=== PATIENT | female | born 2000 | race Two or more races ===

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

== ENCOUNTER 2020-01-10 01:50 | Emergency (ER) | payer MEDICAID ==
[~2020-01-10] VITALS: Ht 160 cm; Wt 130.0 kg
--- NOTE | 2020-01-10 02:12 | NUR ---
RN FIRST CONTACT WITH PT: PT RESTING IN GURNEY, NAD, SKIN COLOR WNL WARM AND DRY, VSS, RESP WNL, FCS NO SOB NOTED. APPEARS COMFORTABLE. PT FAMILY, TWO SISTERS AT BS. PT DENIES PREVIOUS MEDICAL HISTORY, STATES SHE IS NOT TRYING TO GET , LAST PERIOD 4 MONTHS AGO, TYPICALLY IRREGULAR. LAST INTERCOURSE 4 WEEKS AGO. TODAY, APPROX. 45 MINUTES AGO PT BEGAN BLEEDING HEAVILY WITH CLOTS, PT REPORTS FEELING LIGHT HEADED, PERIHPERAL PULSE 2+. WCTM. PLACED ON BP, SPO2 MONITORING. NORMA LAM AT BS FOR EVAL AND POC
[2020-01-10 02:19] LABS: BASOPHILS # (AUTO) 0.05 x10^3/uL (0-0.3); BASOPHILS % (AUTO) 0 % (0-1); EOSINOPHILS # (AUTO) 0.09 x10^3/uL (0-0.8); EOSINOPHILS % (AUTO) 1 % (1-7); LYMPHOCYTES # (AUTO) 3.73 x10^3/uL (1-6.1); LYMPHOCYTES % (AUTO) 32 % (22-44); MD NO; MEAN CORPUSCULAR HEMOGLOBIN 28.5 pg (27.0-34.8); MEAN CORPUSCULAR HGB CONC 33.3 g/dL (32.4-35.8); MEAN CORPUSCULAR VOLUME 85.8 fL (80-100); MEAN PLATELET VOLUME 7.4 fL (7.4-10.4); MONOCYTES # (AUTO) 0.89 x10^3/uL (0-1.4); MONOCYTES % (AUTO) 8 % (2-9); NEUTROPHILS # (AUTO) 6.97 x10^3/uL (1.8-8.0); NEUTROPHILS % (AUTO) 60 % (42-75); PLATELET COUNT 529 x10^3/uL (130-400); RED BLOOD COUNT 4.68 x10^6/uL (3.82-5.3); RED CELL DISTRIBUTION WIDTH 15.2 % (9.6-15.2)
--- NOTE | 2020-01-10 02:19 | NUR ---
PT AMBULATED TO AND FROM RESTROOM WITH A SMOOTH AND STEADY GAIT, PT BACK TO [facility]. WCTM. WAITING FOR LAB RESULTS
[2020-01-10 02:29] LABS: ALANINE AMINOTRANSFERASE 21 U/L (12-78); ALBUMIN 3.5 g/dL (3.4-5.0); ANION GAP 5 mmol/L (5-15); CALCIUM 8.8 mg/dL (8.5-10.1); CHLORIDE 109 mmol/L (98-107); CREATININE 0.76 mg/dL (0.55-1.02)
[2020-01-10 02:34] LABS: ALKALINE PHOSPHATASE 110 U/L (45-117); BILIRUBIN,TOTAL 0.2 mg/dL (0.2-1.0); TOTAL PROTEIN 8.2 g/dL (6.4-8.2)
[2020-01-10 03:29] VITALS: BP 102/55
--- NOTE | 2020-01-10 03:29 | NUR ---
PT GIVEN EXTRA WARM BLANKETS FOR COMFORT, RESTING IN GURNEY, VSS, NAD, RESP WNL, WAITING FOR UA. WCTM
[2020-01-10 03:54] LABS: MICROSCOPIC INDICATED
== END 2020-01-10 04:10 | disposition home or self-care (01) ==
LOC: ED 02:20
DX: N30.00 Acute cystitis without hematuria (principal); N93.9 Abnormal uterine and vaginal bleeding, unspecified
CPT/HCPCS: 36415; 80053; 81001; 84702; 85025; 87086; 99283

== ENCOUNTER 2020-02-23 12:06 | Emergency (ER) | payer MEDICAID ==
[~2020-02-23] VITALS: Ht 160 cm; Wt 125.0 kg
--- NOTE | 2020-02-23 12:10 | NUR ---
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 Mild swelling left ankle.
[2020-02-23 12:14] VITALS: BP 123/66
--- NOTE | 2020-02-23 12:23 | NUR ---
C/O LEFT ANKLE AND FOOT PAIN AND SWELLING SINCE LAST NIGHT. PLACED ON VITALS MONITORS, FALL PRECAUTIONS IN PLACE. CALL LIGHT WITHIN REACH.
[2020-02-23] MEDS ORDERED: IBUPROFEN 600 MG TABLET ONE (12:51)
[2020-02-23] MEDS ORDERED: IBUPROFEN 800 MG TABLET PO ONE (13:00)
[2020-02-23] MEDS ORDERED: IBUPROFEN 200 MG TABLET ONE (13:03)
== END 2020-02-23 13:49 | disposition home or self-care (01) ==
LOC: ED 12:29
DX: M25.572 Pain in left ankle and joints of left foot (principal); J45.909 Unspecified asthma, uncomplicated
CPT/HCPCS: 29515; 99284

== ENCOUNTER 2020-06-17 15:08 | Emergency (ER) | payer MEDICAID ==
[~2020-06-17] VITALS: Ht 157.5 cm; Wt 131.9 kg
[2020-06-17 16:33] VITALS: BP 129/83
--- NOTE | 2020-06-17 16:50 | NUR ---
Patient given discharge instructions and they have confirmed that they understand the instructions. Patient ambulatory with steady gait.
== END 2020-06-17 16:51 | disposition home or self-care (01) ==
LOC: ED 16:40
DX: U07.1 COVID-19 (principal); J45.901 Unspecified asthma with (acute) exacerbation; R06.00 Dyspnea, unspecified; R06.02 Shortness of breath; R07.89 Other chest pain; R05 Cough; J02.9 Acute pharyngitis, unspecified
CPT/HCPCS: 71045; 87635; 93005; 99285

== ENCOUNTER 2020-06-30 11:14 | Inpatient (IN) | payer MEDICAID ==
[~2020-06-30] VITALS: Ht 157.5 cm; Wt 133.2 kg
--- NOTE | 2020-06-30 11:18 | NUR ---
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 PT AGITATED AND STATES HE WANTS TO TAKE HER HOME IF HE CAN'T GO BACK TO ROOM W/ HER. PT WISHES TO STAY FOR WORK UP. FATHER WAITING IN [facility] RN NOTIFIED [employer] TO PROVIDE UPDATES.
--- NOTE | 2020-06-30 11:46 | NUR ---
PT C/O LEFT SIDED CP THAT IS CONSTANT, NO RADIATION. WORSENS WITH DEEP BREATHING. PT HAS TESTED FOR COVID 2 WEEKS AGO. PT DENIES SOB.
[2020-06-30] MEDS ORDERED: KETOROLAC 30 MG/1 ML IVPush ONE (12:00)
[2020-06-30] MEDS ORDERED: SODIUM CHLORIDE FLUSH 10ML SYR IVF ONE (12:00)
[2020-06-30] MEDS ORDERED: KETOROLAC 30 MG/1 ML ONE (12:20)
[2020-06-30 12:23] LABS: BASOPHILS % (AUTO) 1 % (0-1); EOSINOPHILS % (AUTO) 2 % (1-7); LYMPHOCYTES % (AUTO) 26 % (22-44); MEAN CORPUSCULAR HEMOGLOBIN 27.9 pg (27.0-34.8); MEAN CORPUSCULAR HGB CONC 33.8 g/dL (32.4-35.8); MEAN PLATELET VOLUME 6.7 fL (7.4-10.4); MONOCYTES % (AUTO) 6 % (2-9); NEUTROPHILS % (AUTO) 66 % (42-75); PLATELET COUNT 583 x10^3/uL (130-400); RED BLOOD COUNT 5.17 x10^6/uL (3.82-5.3); RED CELL DISTRIBUTION WIDTH 15.2 % (9.6-15.2)
[2020-06-30 12:25] LABS: MD NO
[2020-06-30 12:34] LABS: ALANINE AMINOTRANSFERASE 36 U/L (12-78); ALBUMIN 3.4 g/dL (3.4-5.0); ANION GAP 4 mmol/L (5-15); CALCIUM 8.8 mg/dL (8.5-10.1); CHLORIDE 110 mmol/L (98-107); CREATININE 0.73 mg/dL (0.55-1.02)
[2020-06-30 12:39] LABS: ALKALINE PHOSPHATASE 89 U/L (45-117); BILIRUBIN,TOTAL 0.5 mg/dL (0.2-1.0); TOTAL PROTEIN 8.2 g/dL (6.4-8.2); TROPONIN I < 0.015 ng/mL (0.000-0.045)
[2020-06-30] MEDS ORDERED: OMNIPAQUE 350 MG/ML, 100ML BOTTLE ONE (13:51)
[2020-06-30] MEDS ORDERED: HEPARIN 5,000 UNITS/ML, 1ML IV ONE (14:30)
[2020-06-30] MEDS ORDERED: HEPARIN 5,000 UNITS/ML, 1ML ONE (14:42)
[2020-06-30] MEDS ORDERED: HEPARIN 25,000 UNITS/250ML PMX 250 ML ONE (14:42)
[2020-06-30] MEDS: HEPARIN 25,000 UNITS/250ML PMX 250 ML IV PRN (14:55)
[2020-06-30] MEDS ORDERED: ONDANSETRON ODT 4 MG PO PRN (15:30)
[2020-06-30] MEDS ORDERED: HYDROcodone/APAP 5/325 TABLET PO PRN (15:30)
[2020-06-30] MEDS ORDERED: ACETAMINOPHEN 325 MG TABLET PO PRN (15:30)
[2020-06-30] MEDS ORDERED: PHARMACY MAY ADJ FOR RENAL FX MC PRN (15:30)
[2020-06-30] MEDS ORDERED: hydrALAzine 20 MG/ML, 1ML IVPush PRN (15:30)
[2020-06-30] MEDS ORDERED: CEFTRIAXONE PMX 1GM/50ML 50 ML ONE (16:29)
[2020-06-30] MEDS: CEFTRIAXONE PMX 1GM/50ML 50 ML IVPB SCH (16:42)
--- NOTE | 2020-06-30 17:33 | NUR ---
DIANA HERRERA (FATHER) [phone]
--- NOTE | 2020-06-30 19:00 | NUR ---
Report received from JOSHUA Schwartz. This RN to assume care.
--- NOTE | 2020-06-30 19:25 | NUR ---
Patient resting in gurney. C/o left flank pain.
[2020-06-30] MEDS ORDERED: MORPHINE SULFATE 4 MG/ML, 1ML ONE (20:23)
--- NOTE | 2020-06-30 20:28 | NUR ---
Medicated patient per mar.
[2020-06-30] MEDS: morphine SULFATE 10 MG/ML, 1ML IVPush PRN (20:37)
[2020-06-30] MEDS ORDERED: ASCORBIC ACID 500 MG TABLET ONE (21:10)
[2020-06-30] MEDS: ASCORBIC ACID 500 MG TABLET PO SCH (21:30)
--- NOTE | 2020-06-30 22:30 | NUR ---
Patient up to bedside commode.
[2020-06-30] MEDS ORDERED: HYDROcodone/APAP 5/325 TABLET ONE (23:00)
[2020-06-30] MEDS ORDERED: ALBUTEROL HFA 90 MCG/SPRAY INH PRN (23:30)
[2020-07-01] MEDS ORDERED: HEPARIN 5,000 UNITS/ML, 1ML ONE (00:11)
[2020-07-01] MEDS ORDERED: MORPHINE SULFATE 4 MG/ML, 1ML ONE (00:37)
[2020-07-01] MEDS: morphine SULFATE 10 MG/ML, 1ML IVPush PRN (00:44)
--- NOTE | 2020-07-01 00:45 | NUR ---
Patient c/o pain. Medicated patient per mar.
--- NOTE | 2020-07-01 01:37 | NUR ---
break rn: pt resting on hospital bed, nad, eyes closed, even and unlabored respirations noted at this time. lights off for comfort, bed in lowest, call light next to pt, wctm. waiting for admit bed
[2020-07-01 03:45] VITALS: BP 132/88
[2020-07-01 06:20] VITALS: BP 116/62
[2020-07-01] MEDS ORDERED: ALBUTEROL SULFATE 2.5MG/0.5ML NPPB PRN (07:00)
[2020-07-01 07:26] LABS: BASOPHILS % (AUTO) 1 % (0-1); EOSINOPHILS % (AUTO) 1 % (1-7); LYMPHOCYTES % (AUTO) 32 % (22-44); MEAN CORPUSCULAR HEMOGLOBIN 28.2 pg (27.0-34.8); MEAN CORPUSCULAR HGB CONC 34.1 g/dL (32.4-35.8); MEAN PLATELET VOLUME 6.6 fL (7.4-10.4); MONOCYTES % (AUTO) 6 % (2-9); NEUTROPHILS % (AUTO) 60 % (42-75); PLATELET COUNT 540 x10^3/uL (130-400); RED BLOOD COUNT 4.78 x10^6/uL (3.82-5.3); RED CELL DISTRIBUTION WIDTH 15.6 % (9.6-15.2)
[2020-07-01 07:27] LABS: MD NO
[2020-07-01 07:37] LABS: ALBUMIN 2.9 g/dL (3.4-5.0); ANION GAP 4 mmol/L (5-15); CALCIUM 8.4 mg/dL (8.5-10.1); CHLORIDE 110 mmol/L (98-107)
[2020-07-01 07:41] LABS: ALANINE AMINOTRANSFERASE 30 U/L (12-78); ALKALINE PHOSPHATASE 78 U/L (45-117); BILIRUBIN,TOTAL 0.5 mg/dL (0.2-1.0); CREATININE 0.62 mg/dL (0.55-1.02); TOTAL PROTEIN 7.4 g/dL (6.4-8.2)
[2020-07-01] MEDS: ZINC SULFATE 220 MG CAPSULE PO SCH (08:27)
[2020-07-01] MEDS: HEPARIN 5,000 UNITS/ML, 1ML IV PRN ×4 (08:27→22:30)
[2020-07-01] MEDS: ASCORBIC ACID 500 MG TABLET PO SCH ×2 (08:27→22:07)
[2020-07-01] MEDS: DEXAMETHASONE 4 MG TABLET PO SCH (08:28)
[2020-07-01 13:05] VITALS: BP 123/83
[2020-07-01] MEDS: HEPARIN 25,000 UNITS/250ML PMX 250 ML IV PRN (13:38)
[2020-07-01 15:19] LABS: BASOPHILS % (AUTO) 1 % (0-1); EOSINOPHILS % (AUTO) 0 % (1-7); LYMPHOCYTES % (AUTO) 12 % (22-44); MEAN CORPUSCULAR HGB CONC 33.6 g/dL (32.4-35.8); MEAN PLATELET VOLUME 7.3 fL (7.4-10.4); MONOCYTES % (AUTO) 1 % (2-9); NEUTROPHILS % (AUTO) 86 % (42-75); PLATELET COUNT 577 x10^3/uL (130-400); RED CELL DISTRIBUTION WIDTH 15.6 % (9.6-15.2)
[2020-07-01 15:20] LABS: MD NO
[2020-07-01] MEDS: CEFTRIAXONE PMX 1GM/50ML 50 ML IVPB SCH (15:52)
[2020-07-01 18:30] VITALS: BP 141/76
[2020-07-02 02:27] VITALS: BP 140/84
[2020-07-02 05:30] LABS: ANION GAP 7 mmol/L (5-15); CALCIUM 9.1 mg/dL (8.5-10.1); CHLORIDE 112 mmol/L (98-107); CREATININE 0.61 mg/dL (0.55-1.02)
[2020-07-02] MEDS: DEXAMETHASONE 4 MG TABLET PO SCH (08:03)
[2020-07-02] MEDS: ASCORBIC ACID 500 MG TABLET PO SCH (08:03)
[2020-07-02] MEDS: ZINC SULFATE 220 MG CAPSULE PO SCH (08:03)
[2020-07-02 08:17] VITALS: BP 147/84
[2020-07-02] MEDS ORDERED: APIXABAN 5 MG TABLET PO SCH (09:00)
[2020-07-02] MEDS ORDERED: ALBU18HF INH (10:13)
[2020-07-02] MEDS ORDERED: APIX5TAB PO (10:13)
== END 2020-07-02 13:25 | disposition home or self-care (01) | DRG 177 ==
LOC: ED 11:39 → EDIP 14:50 → 4WST 07-01 03:29
PROVIDERS: ADMIT Internal Medicine; ATTEND Internal Medicine
DX: U07.1 COVID-19 (principal); I26.99 Other pulmonary embolism without acute cor pulmonale; J45.909 Unspecified asthma, uncomplicated; Z79.01 Long term (current) use of anticoagulants
CPT/HCPCS: 36415; 71275; 80048; 80053; 84484; 84703; 85025; 85520; 93005; 93306; 93970; G0378; J0696; J1644; J1885; Q0162; Q9967; J2270

== ENCOUNTER 2021-01-12 17:41 | Emergency (ER) | payer MEDICAID ==
[~2021-01-12] VITALS: Ht 160 cm; Wt 135.8 kg
[~2021-01-12 17:41] MED LIST: ALBU18HF INH; APIX5TAB PO
--- NOTE | 2021-01-12 19:43 | NUR ---
PT PRESENTS TO ED WITH LEFT SIDE/BACK CHEST PAIN. PT STATES THE PAIN HAS BEEN GOING ON FOR 3 DAYS AND THAT SHE WAS HERE A MONTH AGO FOR THE SAME THING AND IT WAS A PE THAT TIME. PT IN GOWN, RESTING ON GURNEY, AND PLACED ON CONTINUOUS MONITORING.
[2021-01-12] MEDS ORDERED: SODIUM CHLORIDE FLUSH 10ML SYR IVF ONE (20:00)
--- NOTE | 2021-01-12 20:00 | NUR ---
20 g IV started to right AC, pt resting on gurney, denies needs at this time.
[2021-01-12 20:32] LABS: BASOPHILS % (AUTO) 1 % (0-1); EOSINOPHILS % (AUTO) 1 % (1-7); LYMPHOCYTES % (AUTO) 28 % (22-44); MEAN CORPUSCULAR HGB CONC 33.6 g/dL (32.4-35.8); MEAN PLATELET VOLUME 6.9 fL (7.4-10.4); MONOCYTES % (AUTO) 6 % (2-9); NEUTROPHILS % (AUTO) 64 % (42-75); PLATELET COUNT 548 x10^3/uL (130-400); RED BLOOD COUNT 4.68 x10^6/uL (3.82-5.3)
[2021-01-12 20:45] LABS: ALBUMIN 3.3 g/dL (3.4-5.0); ANION GAP 5 mmol/L (5-15); CALCIUM 8.9 mg/dL (8.5-10.1); CHLORIDE 103 mmol/L (98-107)
--- NOTE | 2021-01-12 21:10 | NUR ---
pt went to ct
[2021-01-12] MEDS ORDERED: OMNIPAQUE 350 MG/ML, 100ML BOTTLE ONE (21:24)
--- NOTE | 2021-01-12 22:00 | NUR ---
pt resting on gurney, denies needs at this time.
[2021-01-12 23:00] VITALS: BP 122/59
[2021-01-12 23:00] LABS: MICROSCOPIC AUTO
--- NOTE | 2021-01-12 23:00 | NUR ---
pt resting on gurney, denies needs at this time.
--- NOTE | 2021-01-12 23:58 | NUR ---
Patient given discharge instructions and they have confirmed that they understand the instructions. Patient ambulatory with steady gait.
== END 2021-01-13 00:18 | disposition home or self-care (01) ==
LOC: ED 21:40
DX: I10 Essential (primary) hypertension (principal); R07.89 Other chest pain; R10.9 Unspecified abdominal pain; D72.829 Elevated white blood cell count, unspecified; Z79.01 Long term (current) use of anticoagulants; E66.01 Morbid (severe) obesity due to excess calories; Z68.43 Body mass index [BMI] 50.0-59.9, adult; Z86.711 Personal history of pulmonary embolism
CPT/HCPCS: 36415; 71275; 80048; 81001; 82040; 84703; 85025; 87086; 93005; 99285; Q9967

== ENCOUNTER → 2021-03-31 | Emergency (ER) | payer MEDICAID ==
[~2021-03-31] VITALS: Ht 160 cm; Wt 127.2 kg
[2021-03-31 20:15] VITALS: BP 140/92
== END ==
LOC: ED 20:41
DX: A41.9 Sepsis, unspecified organism (principal); R10.31 Right lower quadrant pain; R10.32 Left lower quadrant pain; D72.829 Elevated white blood cell count, unspecified; N73.0 Acute parametritis and pelvic cellulitis; I10 Essential (primary) hypertension; J45.909 Unspecified asthma, uncomplicated; E66.9 Obesity, unspecified; Z86.711 Personal history of pulmonary embolism